=== PATIENT | female | born 1975 ===

== ENCOUNTER 2020-12-02 14:56 | Outpatient (REF) | payer MEDICARE, MEDICAID, SELFPAY ==
--- NOTE | 2020-12-04 08:24 | MHC.AU.HAS ---
Hearing Aid Evaluation Date of Visit: 12/02/20 Historical Information: Description of Hearing: Right: Mild/borderline sloping to severe sensorineural hearing loss Left: Mild/borderline sloping to moderately-severe sensorineural hearing loss Summary: Patient is followed by Dr. Wright at [facility]. In May 2020, she received PE tubes. She experiences bothersome tinnitus. Hearing aid options were discussed. Hearing Aid Prescription: Based on the individual?s shared listening needs, communication environments, dexterity, desire for connectivity, and personal preferences, the following prescription for amplification has been made: Right ear: Grid Caster: Phonak Model: Audeo P70-R Battery Size: Rechargeable Color: P1 Internet Site Designer: 0M Left ear: Grid Caster: Phonak Model: Audeo P70-R Battery Size: Rechargeable Color: P1 Internet Site Designer: 0M Action Taken/Action Needed: Hearing Instrument Fitting to be scheduled when materials arrive Primary Diagnosis: H90.3 Bilateral Sensorineural Hearing Loss Signature: Provider: Pantera Monroy, CCC-A
== END 2020-12-02 14:57 | disposition home or self-care (01) ==
LOC: HO.HAP 14:56
PROVIDERS: PCP Pediatrics; Visit Provider Otolaryngology
DX: Z46.1 Encounter for fitting and adjustment of hearing aid (principal); H90.3 Sensorineural hearing loss, bilateral
CPT/HCPCS: 92591

== ENCOUNTER 2020-12-18 14:55 | Outpatient (REF) | payer MEDICARE, MEDICAID, SELFPAY | END 2020-12-18 14:56 | disposition home or self-care (01) | LOC: HO.HAP 14:55 | PROVIDERS: Visit Provider Pediatrics | DX: Z13.89 Encounter for screening for other disorder (principal) ==

== ENCOUNTER 2020-12-19 14:04 | Outpatient (REF) | payer MEDICARE, MEDICAID, SELFPAY ==
--- NOTE | 2020-12-20 08:07 | MHC.AU.HFA ---
Hearing Instrument Fitting- Adult- Binaural Date of Visit: 12/19/20 Hearing Instruments Dispensed: Right Ear: Care Mgr: Phonak Model: Audeo P70-R Serial Number: [id number] Repair Warranty: 03/03/2024 Loss and Damage Warranty: 03/03/24 Service Plan: 12/19/2021 Battery Size: Rechargeable Color: P1 Sales Assistant Institutional Sales: 0M Type of Dome: Small Open Type of Wax Guard: CeruShield Left Ear: Care Mgr: Phonak Model: Audeo P70-R Serial Number: [id number] Repair Warranty: 03/03/2024 Loss and Damage Warranty: 03/03/2024 Service Plan: 12/19/2021 Battery Size: Rechargeable Color: P1 Sales Assistant Institutional Sales: 0M Type of Dome: Small Open Type of Wax Guard: CeruShield Summary of Fitting: Feedback depot manager run. Verifit performed and levels adjusted to better reach targets. Target gain set to 100%. Patient was pleased with the sound of the instruments. Tap control deactivated. Hearing aid care and maintenance discussed and practiced. Hearing aids paired to the phone and the ayesha. Verified pairing with a phone call. Recommendations: A hearing instrument follow-up was scheduled. Diagnosis Code(s): Primary Diagnosis: H90.3 Bilateral Sensorineural Hearing Loss Signature: Provider: Pantera Monroy, REYES-A
== END 2020-12-19 14:05 | disposition home or self-care (01) ==
LOC: HO.HAP 14:04
PROVIDERS: Visit Provider Otolaryngology
DX: Z46.1 Encounter for fitting and adjustment of hearing aid (principal); H90.3 Sensorineural hearing loss, bilateral
CPT/HCPCS: V5011; V5020; V5160; V5261

== ENCOUNTER 2021-01-10 14:52 | Outpatient (REF) | payer MEDICARE, MEDICAID, SELFPAY | END 2021-01-10 14:53 | disposition home or self-care (01) | LOC: HO.HAP 14:52 | PROVIDERS: Visit Provider Pediatrics | DX: Z13.89 Encounter for screening for other disorder (principal) ==

== ENCOUNTER 2021-08-28 11:56 | Outpatient (REF) | payer MEDICARE, MEDICAID, SELFPAY | END 2021-08-28 11:57 | disposition home or self-care (01) | LOC: HO.HAP 11:56 | PROVIDERS: Visit Provider Pediatrics | DX: Z46.1 Encounter for fitting and adjustment of hearing aid (principal); H90.3 Sensorineural hearing loss, bilateral | CPT/HCPCS: 92593 ==

== ENCOUNTER 2023-11-16 14:11 | Outpatient (REF) | payer SELFPAY ==
--- NOTE | 2023-11-16 14:50 | MHC.AU.HA3 ---
Hearing Instrument Follow-Up- Binaural Date of Visit: 11/16/23 Right Ear: Roger, , Color, Serial Number: Massimo Diane [id number]-[id number] SN: [id number] Color: Sand Beige Mercerizer Repair Warranty: 03/03/2024 Mercerizer Loss and Damage Warranty: 03/03/2024 [facility] Service Plan: 12/19/2021 Battery Size: Rechargeable Echo Vascular Technologist/Slim Tube: 0M Earmold/Dome/CShell/SlimTip:Small open dome with retention tail Type of Wax Guard: CeruShield Dispensed By: [facility] Date of Fittin12/19/2020 Left Ear: Roger, , Color, Serial Number: Massimo Diane [id number]-[id number] SN: [id number] Color: Sand Beige Mercerizer Repair Warranty: 03/03/2024 Mercerizer Loss and Damage Warranty: 03/03/2024 [facility] Service Plan: 12/19/2021 Battery Size: Rechargeable Echo Vascular Technologist/Slim Tube: 0M Earmold/Dome/CShell/SlimTip: Small open dome with retention tail Type of Wax Guard: CeruShield Dispensed By: [facility] Date of Fittin12/19/2020 Follow-Up Summary: Latasha reported right hearing aid . Domes and wax guards on both hearing aids occluded, wax build up noted on retention tails and ends of receivers. Cleaned both hearing aids. Replaced domes, wax guards, and retention tails. Vacuumed microphones. Ran through dehumidifier. Hearing aids not charged. Placed on stock roper operator for a few minutes, able to perform listening check - amplifying clearly. Could not connect to [employer] software to check for firmware update due to low battery power. Advised to return if any issues with charging arise. Recommendations: Hearing instrument follow-up or maintenance as needed. Please contact our clinic with any questions or concerns. Diagnosis Code(s): Primary Diagnosis: H90.3 Bilateral Sensorineural Hearing Loss Signature: Provider: Carrie Chavira, CCC-A
== END 2023-11-16 14:12 | disposition home or self-care (01) ==
LOC: HO.HAP 14:11
PROVIDERS: Visit Provider Pediatrics
DX: Z46.1 Encounter for fitting and adjustment of hearing aid (principal); H90.3 Sensorineural hearing loss, bilateral
CPT/HCPCS: 92593